=== PATIENT | female | born 1985 | race African-American/Black ===

== ENCOUNTER 2017-06-15 08:56 | Emergency (ER) | payer MEDICAID ==
[~2017-06-15] VITALS: Ht 162.6 cm; Wt 85.0 kg
[~2017-06-15 08:56] MED LIST: PRENATAL VIT
[2017-06-15] MEDS ORDERED: ONDANSETRON 4MG ODT PO ONE (10:45)
[2017-06-15 11:06] LABS: EOSINOPHILS % 3.5 % (0.0-5.0); HEMATOCRIT. 35.2 % (36.0-48.0); HEMOGLOBIN. 11.9 g/dL (12.0-16.0); LYMPHOCYTES % 33.3 % (20.0-50.0); MEAN CORPUSCULAR HEMOGLOBIN 29.3 pg (28.0-32.0); MEAN CORPUSCULAR VOLUME 86.5 fL (81.0-99.0); MEAN PLATELET VOLUME 10.7 fl (7.4-10.4); MONOCYTES % 9.5 % (2.0-8.0); NEUTROPHILS % 52.7 % (40.0-76.0); PLATELET 145 x1000/uL (130-400); RED BLOOD CELL COUNT 4.07 mill/uL (4.2-5.4); RED CELL DISTRIBUTION WIDTH 13.8 % (11.6-14.6)
[2017-06-15 11:12] LABS: PROTHROMBIN TIME 10.6 sec
[2017-06-15 11:18] LABS: CARBON DIOXIDE 31 mEq/L (21-32); CHLORIDE 104 mEq/L (98-107); HCG SCREEN NEGATIVE
[2017-06-15 12:08] VITALS: BP 99/58
== END 2017-06-15 12:14 | disposition home or self-care (01) ==
LOC: ER 10:15
DX: N93.8 Other specified abnormal uterine and vaginal bleeding (principal); R11.0 Nausea
CPT/HCPCS: 36415; 80053; 84703; 85025; 85610; 99284; Q0162; Z7610